=== PATIENT | female | born 1975 | race Caucasian/White ===

== ENCOUNTER 2017-03-25 12:37 | Outpatient (CLI) | payer OTHER ==
--- NOTE | 2017-03-25 16:47 | RAD ---
LUMBAR SPINE 3 VIEWS: HISTORY: Low back pain. FINDINGS: There are 5 lumbar-type vertebrae. Pedicles are intact. Vertebral body heights are maintained. Th ere is disk space narrowing and minimal degenerative spondylolisthesis at the L3-4 level. Osteophyt osis is present throughout the facets. Phleboliths project over the pelvis. IMPRESSION: Lumbar spondylosis. No evidence of compression fracture. POS: [facility]
== END 2017-03-25 12:38 | disposition home or self-care (01) ==
LOC: NAV RAD 12:37
PROVIDERS: ATTEND Family Medicine
DX: Z02.71 Encounter for disability determination (principal); M47.816 Spondylosis without myelopathy or radiculopathy, lumbar region
CPT/HCPCS: 72100